=== PATIENT | female | born 1980 | race Caucasian/White ===

== ENCOUNTER 2018-08-03 20:55 | Inpatient (IN) | payer OTHER ==
[2018-08-03 21:50] LABS: BASO % 0.2 % (0-2.0); EOS % 0.7 % (0-4.5); HEMATOCRIT 36.4 % (32.4-45.2); HEMOGLOBIN 12.6 GM/dL (10.7-15.3); LYMPH % 22.3 % (8-40); MCHC 34.5 g/dl (32.0-36.0); MEAN PLT VOLUME 9.8 fl (7.5-11.1); MONO % 5.3 % (3.8-10.2); NEUT % 71.5 % (42.8-82.8); PLATELET COUNT 192 K/MM3 (134-434); RBC 4.34 M/mm3 (3.60-5.2); RDW 16.4 % (11.6-15.6); WHITE BLOOD COUNT 11.3 K/mm3 (4.0-10.0)
[2018-08-03 22:11] LABS: ANION GAP 10 MMOL/L (8-16); BLOOD UREA NITROGEN 15 mg/dL (7-18); CALCIUM 8.9 mg/dL (8.5-10.1); CHLORIDE 104 mmol/L (98-107); CO2 21 mmol/L (21-32); CREATININE 0.8 mg/dL (0.55-1.3); GLUCOSE,RANDOM 107 mg/dL (74-106); INR 1.03 (0.83-1.09); POTASSIUM 3.9 mmol/L (3.5-5.1); PROTHROMBIN TIME (PATIENT) 12.1 SEC (9.7-13.0); SODIUM 134 mmol/L (136-145)
[2018-08-03] MEDS ORDERED: OXYTOCIN 20 UNITS in 0.9% NS 20 UNIT/1,000 ML INFUS.BAG IV ONE (22:13)
[2018-08-03 22:14] LABS: ACTIVATED PTT 25.6 SECONDS (25.2-36.5)
[2018-08-03] MEDS ORDERED: IBUPROFEN 600 MG TABLET (FP) PO ONE (22:38)
[2018-08-03 23:02] VITALS: BMI 36.1
[2018-08-04] MEDS ORDERED: OXYTOCIN 20 UNITS in 0.9% NS 20 UNIT/1,000 ML INFUS.BAG IV ONE (00:34)
[2018-08-04] MEDS ORDERED: BENZOCAINE 20% 57 GM BOTTLE TP PRN (01:35)
[2018-08-04] MEDS ORDERED: IBUPROFEN 600 MG TABLET (FP) PO PRN (01:35)
[2018-08-04] MEDS ORDERED: BENZOCAINE 28 GM HEMORRHOIDAL OINTMENT TP PRN (01:35)
[2018-08-04] MEDS ORDERED: METHYLERGONOVINE MALEATE 0.2 MG/1 ML AMP IM PRN (01:35)
[2018-08-04] MEDS ORDERED: WITCH HAZEL 50% (TUCKS) 40 PAD/JAR PAD TP PRN (01:35)
[2018-08-04] MEDS ORDERED: ACETAMINOPHEN 325 MG TABLET (FP) PO PRN (01:35)
[2018-08-04] MEDS ORDERED: BISACODYL 10 MG SUPP.RECT RC PRN (01:35)
[2018-08-04] MEDS ORDERED: OXYTOCIN 20 UNITS in 0.9% NS 20 UNIT/1,000 ML INFUS.BAG IV SCH (01:45)
[2018-08-04 05:05] LABS: COCAINE, UR NEGATIVE ng/ml (CUTOFF=300); METHADONE, UR NEGATIVE ng/ml (CUTOFF=300); OPIATES, URI NEGATIVE ng/ml (CUTOFF=300); PHENCYCLIDINE,URINE NEGATIVE ng/ml (CUTOFF=25); URINE AMPHETAMINES NEGATIVE ng/ml (CUTOFF=500); URINE BARBITURATES NEGATIVE ng/ml (CUTOFF=200); URINE BENZODIAZEPINES NEGATIVE ng/ml (CUTOFF=200)
[2018-08-04 07:08] LABS: BASO % 0.3 % (0-2.0); EOS % 0.5 % (0-4.5); HEMATOCRIT 33.2 % (32.4-45.2); HEMOGLOBIN 11.3 GM/dL (10.7-15.3); LYMPH % 19.8 % (8-40); MCH 28.5 pg (25.7-33.7); MCHC 34.2 g/dl (32.0-36.0); MEAN CELL VOLUME 83.5 fl (80-96); MEAN PLT VOLUME 9.3 fl (7.5-11.1); NEUT % 73.4 % (42.8-82.8); PLATELET COUNT 172 K/MM3 (134-434); RBC 3.98 M/mm3 (3.60-5.2); RDW 16.3 % (11.6-15.6)
[2018-08-04] MEDS ORDERED: DIPHTH,PERTUSS(ACELL),TET 0.5 ML DISP.SYRIN IM ONE (10:00)
--- NOTE | 2018-08-04 10:13 | HP ---
Past Medical History - Admission Chief Complaint: Labor pain History of Present Illness: 37 yo @ 40 weeks gestation, EDC 08/03/18, admitted for labor pain. Upon admission, she was 4-5cm dilated. History Source: Patient Limitations to Obtaining History: No Limitations - Past Medical History ...: 4 ...Para: 3 ...Term: 3 ...: 0 ...Spon : 0 ...Induced : 0 ...Multiple Gestation: 0 ... Weeks Gestation by Dates: 40 ...EDC by Dates: 08/03/17 - Past Surgical History Past Surgical History: Yes: None Hx Myomectomy: No Hx Transabdominal Cerclage: No - Smoking History Smoking history: Never smoked Have you smoked in the past 12 months: No - Alcohol/Substance Use Hx Alcohol Use: No History of Substance Use: reports: None - Social History Usual Living Arrangement: Yes: With Significant Other History of Recent Travel: No Home Medications - Allergies Allergies/Adverse Reactions: Allergies Allergy/AdvReac Type Severity Reaction Status Date / Time Pork/Porcine Containing Allergy Severe Verified 08/04/18 03:02 Products shellfish derived Allergy Severe Verified 08/04/18 03:02 - Home Medications Home Medications: Ambulatory Orders Vitamins (Sj[facility]) - 1 tab PO DAILY 08/04/18 Family Disease History - Family Disease History Family History: Unremarkable Review of Systems - Review of Systems Constitutional: reports: No Symptoms Eyes: reports: No Symptoms HENT: reports: No Symptoms Neck: reports: No Symptoms Cardiovascular: reports: No Symptoms Respiratory: reports: No Symptoms Gastrointestinal: reports: No Symptoms Genitourinary: reports: Pain Breasts: reports: No Symptoms Reported Musculoskeletal: reports: No Symptoms Integumentary: reports: No Symptoms Neurological: reports: No Symptoms Endocrine: reports: No Symptoms Hematology/Lymphatic: reports: No Symptoms Psychiatric: reports: No Symptoms Pain Intensity: 6 Physical Exam - Maternity Vital Signs: Vital Signs Temperature 98.3 F 08/04/18 05:18 Pulse Rate 80 08/04/18 05:18 Respiratory Rate 19 08/04/18 05:18 Blood Pressure 101/60 08/04/18 05:18 O2 Sat by Pulse Oximetry (%) Constitutional: Yes: Well Nourished Eyes: Yes: Conjunctiva Clear HENT: Yes: Atraumatic Neck: Yes: Supple Cardiovascular: Yes: Regular Rate and Rhythm Lungs: Clear to auscultation Breast(s): Yes: WNL - Abdominal Exam/OB Number of Fetuses: Single Presentation: Vertex - Vaginal Exam/OB Vaginal Bleediing: No Dilatation (cm): 5 Effacement (%): 90 Amniotic Membrane Status: Intact Presentation: Vertex/Position Station: -1 - Physical Exam ...Motor Strength: WNL Psychiatric: Yes: Alert, Oriented - Labs Lab Results: CBC, BMP 08/04/18 06:45 08/03/18 21:30 Problem List - Problems (1) Pain during labor Code(s): O99.89 - OTH DISEASES AND CONDITIONS COMPL PREG/CHLDBRTH; R52 - PAIN, UNSPECIFIED Assessment/Plan Active labor Admit to L&D Anticipate
--- NOTE | 2018-08-04 10:14 | PN ---
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 Nose / Oropharynx suction. Cord clamped and cut.
--- NOTE | 2018-08-04 10:47 | PN ---
Post Progress Note - Subjective Subjective: 37 yo Para 4 status post vaginal delivery, seen and evaluated. Doing well. Post Day: 1 Type of Delivery: Vital Signs: Vital Signs Temperature 98.3 F 08/04/18 05:18 Pulse Rate 80 08/04/18 05:18 Respiratory Rate 19 08/04/18 05:18 Blood Pressure 101/60 08/04/18 05:18 O2 Sat by Pulse Oximetry (%) Breast Exam: Yes: Soft Uterus: Yes: Fundus Firm Abdomen/GI: Yes: Abdomen soft, Tolerating PO Lochia: Yes: Rubra Lochia, amount: Moderate Extremities: Yes: Calves non-tender Perineum: Yes: Intact Activity: Ambulating - Labs Labs: CBC WBC 13.0 K/mm3 (4.0-10.0) H 08/04/18 06:45 RBC 3.98 M/mm3 (3.60-5.2) 08/04/18 06:45 Hgb 11.3 GM/dL (10.7-15.3) 08/04/18 06:45 Hct 33.2 % (32.4-45.2) 08/04/18 06:45 MCV 83.5 fl (80-96) 08/04/18 06:45 MCH 28.5 pg (25.7-33.7) 08/04/18 06:45 MCHC 34.2 g/dl (32.0-36.0) 08/04/18 06:45 RDW 16.3 % (11.6-15.6) H 08/04/18 06:45 Plt Count 172 K/MM3 (134-434) 08/04/18 06:45 MPV 9.3 fl (7.5-11.1) 08/04/18 06:45 Absolute Neuts (auto) 9.5 K/mm3 (1.5-8.0) H 08/04/18 06:45 Neutrophils % 73.4 % (42.8-82.8) 08/04/18 06:45 Lymphocytes % 19.8 % (8-40) 08/04/18 06:45 Monocytes % 6.0 % (3.8-10.2) 08/04/18 06:45 Eosinophils % 0.5 % (0-4.5) 02/05/19 06:45 Basophils % 0.3 % (0-2.0) 08/04/18 06:45 Nucleated RBC % 0 % (0-0) 08/04/18 06:45 Problem List - Problems (1) Pain during labor Code(s): O99.89 - OTH DISEASES AND CONDITIONS COMPL PREG/CHLDBRTH; R52 - PAIN, UNSPECIFIED (2) Status post normal vaginal delivery Code(s): [id number] - Assessment/Plan Status post vaginal deliver Stable Continue routine care
[2018-08-05] MEDS ORDERED: SENNOSIDES/DOCUSATE COMBO (SENNA PLUS) TABLET (UD) PO PRN (01:35)
--- NOTE | 2018-08-05 09:05 | PN ---
Post Progress Note - Subjective Subjective: no complains Post Day: 2 Type of Delivery: Vital Signs: Vital Signs Temperature 97.5 F L 08/04/18 20:30 Pulse Rate 84 08/04/18 20:30 Respiratory Rate 20 08/04/18 20:30 Blood Pressure 105/67 08/04/18 20:30 O2 Sat by Pulse Oximetry (%) Breast Exam: Yes: Soft, Engorged (rt breast engorged ), Other (breast & bottle feeding ). No: Cracked Nipples Uterus: Yes: Fundus Firm, Fundus below umbilicus Lochia: Yes: Rubra Lochia, amount: Moderate Extremities: Yes: Calves non-tender Perineum: Yes: Intact Activity: Ambulating - Labs Labs: CBC WBC 13.0 K/mm3 (4.0-10.0) H 08/04/18 06:45 RBC 3.98 M/mm3 (3.60-5.2) 08/04/18 06:45 Hgb 11.3 GM/dL (10.7-15.3) 08/04/18 06:45 Hct 33.2 % (32.4-45.2) 08/04/18 06:45 MCV 83.5 fl (80-96) 08/04/18 06:45 MCH 28.5 pg (25.7-33.7) 08/04/18 06:45 MCHC 34.2 g/dl (32.0-36.0) 08/04/18 06:45 RDW 16.3 % (11.6-15.6) H 08/04/18 06:45 Plt Count 172 K/MM3 (134-434) 08/04/18 06:45 MPV 9.3 fl (7.5-11.1) 08/04/18 06:45 Absolute Neuts (auto) 9.5 K/mm3 (1.5-8.0) H 08/04/18 06:45 Neutrophils % 73.4 % (42.8-82.8) 08/04/18 06:45 Lymphocytes % 19.8 % (8-40) 08/04/18 06:45 Monocytes % 6.0 % (3.8-10.2) 08/04/18 06:45 Eosinophils % 0.5 % (0-4.5) 08/04/18 06:45 Basophils % 0.3 % (0-2.0) 08/04/18 06:45 Nucleated RBC % 0 % (0-0) 08/04/18 06:45 Problem List - Problems (1) Encounter for care after planned out of hospital delivery Code(s): Z39.2 - ENCOUNTER FOR ROUTINE FOLLOW-UP Assessment/Plan stable plan discharge today.
[2018-08-05 09:23] VITALS: BP 109/65; PULSE 97; TEMP 98.9
== END 2018-08-05 12:50 | disposition home or self-care (01) | DRG 560 ==
LOC: JLDR 20:55 → J3W 08-04 00:40
PROVIDERS: ADMIT Obstetrics & Gynecology; ATTEND Obstetrics & Gynecology
PROC: 10E0XZZ Delivery of Products of Conception, External Approach (ICD-10-PCS; principal; 2018-08-03)
DX: O48.0 Post-term pregnancy (principal); Z3A.40 40 weeks gestation of pregnancy; Z37.0 Single live birth
CPT/HCPCS: 36415; 59409; 80048; 80307; 85025; 85610; 85730; 86593; 86850; 86900; 86901; 90715

== ENCOUNTER 2020-05-12 10:15 | Inpatient (IN) | payer OTHER ==
[2020-05-12 11:32] VITALS: BMI 34.0
[2020-05-12] MEDS ORDERED: OXYTOCIN 30 UNITS in 0.9% NS 30 UNIT/500 ML INFUS.BAG IVPB ONE (11:42)
[2020-05-12] MEDS ORDERED: OXYTOCIN 30 UNITS in 0.9% NS 30 UNIT/500 ML INFUS.BAG IVPB SCH (11:45)
[2020-05-12] MEDS ORDERED: ELECTROLYTE-148 SOLN 1,000 ML IV SCH (11:45)
[2020-05-12 11:47] LABS: BASO % 0.6 % (0-2.0); EOS % 0.9 % (0-4.5); HEMATOCRIT 36.9 % (32.4-45.2); HEMOGLOBIN 12.4 GM/dL (10.7-15.3); LYMPH % 22.1 % (8-40); MCH 28.5 pg (25.7-33.7); MCHC 33.5 g/dl (32.0-36.0); MEAN PLT VOLUME 9.9 fl (7.5-11.1); MONO % 4.5 % (3.8-10.2); NEUT % 71.9 % (42.8-82.8); PLATELET COUNT 153 K/MM3 (134-434); RBC 4.34 M/mm3 (3.60-5.2); RDW 15.9 % (11.6-15.6); WHITE BLOOD COUNT 9.4 K/mm3 (4.0-10.0)
[2020-05-12 11:57] LABS: INR 0.96 (0.83-1.09); PROTHROMBIN TIME (PATIENT) 11.8 SEC (9.7-13.0)
[2020-05-12 12:00] LABS: ACTIVATED PTT 25.3 SECONDS (25.2-36.5)
[2020-05-12 12:06] LABS: POTASSIUM 3.9 mmol/L (3.5-5.1)
[2020-05-12 12:08] LABS: BLOOD UREA NITROGEN 5.2 mg/dL (7-18); CALCIUM 8.5 mg/dL (8.5-10.1)
[2020-05-12 12:12] LABS: CREATININE 0.5 mg/dL (0.55-1.3)
[2020-05-12] MEDS ORDERED: OXYTOCIN 20 UNITS in 0.9% NS 20 UNIT/1,000 ML INFUS.BAG IV ONE ×2 (14:39→15:44)
[2020-05-12] MEDS ORDERED: LIDOCAINE HCL 1% PRESERVATIVE FREE - 30ML VIAL ONE (14:40)
[2020-05-12] MEDS ORDERED: WITCH HAZEL 50% (TUCKS) 40 PAD/JAR PAD TP PRN (14:52)
[2020-05-12] MEDS ORDERED: METHYLERGONOVINE MALEATE 0.2 MG/1 ML AMP IM PRN (14:52)
[2020-05-12] MEDS ORDERED: BISACODYL 10 MG SUPP.RECT RC PRN (14:52)
[2020-05-12] MEDS ORDERED: BENZOCAINE 20% 57 GM BOTTLE TP PRN (14:52)
[2020-05-12] MEDS ORDERED: BENZOCAINE 28 GM HEMORRHOIDAL OINTMENT TP PRN (14:52)
[2020-05-12] MEDS ORDERED: OXYTOCIN 20 UNITS in 0.9% NS 20 UNIT/1,000 ML INFUS.BAG IV SCH (15:00)
[2020-05-12] MEDS ORDERED: ACETAMINOPHEN 325 MG TABLET (FP) ONE (16:58)
[2020-05-12] MEDS ORDERED: IBUPROFEN 600 MG TABLET (FP) PO ONE (16:58)
[2020-05-12] MEDS: ACETAMINOPHEN 325 MG TABLET (FP) PO PRN (17:10)
[2020-05-12] MEDS: IBUPROFEN 600 MG TABLET (FP) PO PRN (17:11)
[2020-05-13] MEDS: IBUPROFEN 600 MG TABLET (FP) PO PRN (02:52)
[2020-05-13] MEDS: ACETAMINOPHEN 325 MG TABLET (FP) PO PRN (02:53)
[2020-05-13 08:00] LABS: BASO % 0.2 % (0-2.0); EOS % 1.1 % (0-4.5); HEMOGLOBIN 10.9 GM/dL (10.7-15.3); LYMPH % 23.3 % (8-40); MCH 28.3 pg (25.7-33.7); MCHC 33.2 g/dl (32.0-36.0); MEAN CELL VOLUME 85.4 fl (80-96); MEAN PLT VOLUME 10.2 fl (7.5-11.1); MONO % 4.4 % (3.8-10.2); PLATELET COUNT 133 K/MM3 (134-434); RBC 3.86 M/mm3 (3.60-5.2); WHITE BLOOD COUNT 11.2 K/mm3 (4.0-10.0)
[2020-05-13] MEDS: PRENATAL VITAMINS W/ FOLIC ACID TABLET (FP) PO SCH (09:58)
[2020-05-13] MEDS ORDERED: DIPHTH,PERTUSS(ACELL),TET 0.5 ML DISP.SYRIN IM ONE (10:00)
[2020-05-13] MEDS ORDERED: SENNOSIDES/DOCUSATE COMBO (SENNA PLUS) TABLET (UD) PO PRN (22:00)
[2020-05-14] MEDS: IBUPROFEN 600 MG TABLET (FP) PO PRN (08:22)
[2020-05-14] MEDS: ACETAMINOPHEN 325 MG TABLET (FP) PO PRN (08:22)
[2020-05-14 09:18] VITALS: BP 101/63; PULSE 67; TEMP 97.6
[2020-05-14] MEDS: PRENATAL VITAMINS W/ FOLIC ACID TABLET (FP) PO SCH (09:30)
== END 2020-05-14 13:05 | disposition home or self-care (01) | DRG 560 ==
LOC: JDEL 10:15 → JLDR 10:55 → J3W 18:14
PROVIDERS: ADMIT Obstetrics & Gynecology; ATTEND Obstetrics & Gynecology
PROC: 10E0XZZ Delivery of Products of Conception, External Approach (ICD-10-PCS; principal; 2020-05-12)
PROC: 3E033VJ Introduction of Other Hormone into Peripheral Vein, Percutaneous Approach (ICD-10-PCS; 2020-05-12)
PROC: 10907ZC Drainage of Amniotic Fluid, Therapeutic from Products of Conception, Via Natural or Artificial Opening (ICD-10-PCS; 2020-05-12)
DX: O48.0 Post-term pregnancy (principal); O99.214 Obesity complicating childbirth; E66.9 Obesity, unspecified; Z3A.40 40 weeks gestation of pregnancy; Z91.013 Allergy to seafood; Z91.018 Allergy to other foods; Z37.0 Single live birth
CPT/HCPCS: 36415; 59409; 80048; 85025; 85610; 85730; 86780; 86850; 86900; 86901; 90715; C9803; U0003

== ENCOUNTER 2022-09-09 00:35 | Inpatient (IN) | payer OTHER ==
[2022-09-09] MEDS: OXYTOCIN 20 UNITS in 0.9% NS 20 UNIT/1,000 ML INFUS.BAG IV SCH ×2 (00:47→01:50)
[2022-09-09] MEDS ORDERED: ACETAMINOPHEN 325 MG TABLET (FP) PO PRN (01:29)
[2022-09-09] MEDS ORDERED: BENZOCAINE 20% 57 GM BOTTLE TP PRN (01:29)
[2022-09-09] MEDS ORDERED: oxyCODONE HCL 5 MG TABLET PO PRN (01:29)
[2022-09-09] MEDS ORDERED: WITCH HAZEL 50% (TUCKS) 40 PAD/JAR PAD TP PRN (01:29)
[2022-09-09] MEDS ORDERED: METHYLERGONOVINE MALEATE 0.2 MG/1 ML AMP IM PRN (01:29)
[2022-09-09] MEDS ORDERED: BISACODYL 10 MG SUPP.RECT RC PRN (01:29)
[2022-09-09] MEDS ORDERED: BENZOCAINE 28 GM HEMORRHOIDAL OINTMENT TP PRN (01:29)
[2022-09-09 02:04] LABS: BASO % 0.3 % (0-2.0); EOS % 0.6 % (0-4.5); HEMOGLOBIN 10.9 GM/dL (10.7-15.3); LYMPH % 19.4 % (8-40); MCH 26.6 pg (25.7-33.7); MEAN CELL VOLUME 80.5 fl (80-96); MEAN PLT VOLUME 10.4 fl (7.5-11.1); NEUT % 74.7 % (42.8-82.8); PLATELET COUNT 146 10^3/uL (134-434); RDW 16.4 % (11.6-15.6); WHITE BLOOD COUNT 10.3 K/mm3 (4.0-10.0)
[2022-09-09 02:08] VITALS: BMI 34.2
[2022-09-09 02:09] LABS: INR 1.01 (0.83-1.09); PROTHROMBIN TIME (PATIENT) 11.7 SEC (9.7-13.0)
[2022-09-09 02:12] LABS: ACTIVATED PTT 24.7 SECONDS (25.2-36.5)
[2022-09-09 02:28] LABS: CALCIUM 7.9 mg/dL (8.5-10.1)
[2022-09-09 02:29] LABS: BLOOD UREA NITROGEN 10.7 mg/dL (7-18)
[2022-09-09 02:32] LABS: CREATININE 0.6 mg/dL (0.55-1.3)
[2022-09-09 03:26] LABS: HIV INTERPRETATION NEGATIVE (NEGATIVE)
[2022-09-09 06:13] LABS: COCAINE, UR NEGATIVE (NEGATIVE); OPIATES, URI NEGATIVE (NEGATIVE); PHENCYCLIDINE,URINE NEGATIVE (NEGATIVE); URINE BARBITURATES NEGATIVE (NEGATIVE); URINE BENZODIAZEPINES NEGATIVE (NEGATIVE)
[2022-09-09 06:14] LABS: METHADONE, UR NEGATIVE (NEGATIVE)
[2022-09-09 06:26] LABS: URINE AMPHETAMINES NEGATIVE (NEGATIVE)
[2022-09-09] MEDS: IBUPROFEN 600 MG TABLET (FP) PO PRN ×3 (07:44→20:43)
[2022-09-10] MEDS: IBUPROFEN 600 MG TABLET (FP) PO PRN ×2 (02:27→08:12)
[2022-09-10 07:33] LABS: BASO % 0.3 % (0-2.0); EOS % 1.1 % (0-4.5); HEMATOCRIT 30.1 % (32.4-45.2); HEMOGLOBIN 10.1 GM/dL (10.7-15.3); LYMPH % 33.1 % (8-40); MCH 27.7 pg (25.7-33.7); MCHC 33.5 g/dl (32.0-36.0); MEAN CELL VOLUME 82.6 fl (80-96); MONO % 5.1 % (3.8-10.2); NEUT % 60.4 % (42.8-82.8); PLATELET COUNT 145 10^3/uL (134-434); RBC 3.65 M/mm3 (3.60-5.2); RDW 17.2 % (11.6-15.6); WHITE BLOOD COUNT 9.5 K/mm3 (4.0-10.0)
[2022-09-10] MEDS ORDERED: SENNOSIDES/DOCUSATE COMBO (SENNA PLUS) TABLET (UD) PO PRN (22:00)
[2022-09-11] MEDS: IBUPROFEN 600 MG TABLET (FP) PO PRN (06:10)
[2022-09-11 09:30] VITALS: BP 105/69; PULSE 90; RESP 18; TEMP 98.1
== END 2022-09-11 12:25 | disposition home or self-care (01) | DRG 560 ==
LOC: JLDR 00:35 → J3W 04:35
PROVIDERS: ADMIT Obstetrics & Gynecology; ATTEND Obstetrics & Gynecology
PROC: 10E0XZZ Delivery of Products of Conception, External Approach (ICD-10-PCS; principal; 2022-09-09)
DX: O80 Encounter for full-term uncomplicated delivery (principal); Z37.0 Single live birth; Z3A.40 40 weeks gestation of pregnancy
CPT/HCPCS: 36415; 59409; 80048; 80307; 85025; 85610; 85730; 86780; 86850; 86900; 86901; 87389; C9803-CS; U0003; U0005

== ENCOUNTER 2024-01-19 02:57 | Inpatient (IN) | payer OTHER ==
[2024-01-19 03:06] VITALS: BMI 34.3
[2024-01-19] MEDS ORDERED: diphenhydrAMINE HCL 25 MG CAPSULE (FP) PO ONE (03:49)
[2024-01-19] MEDS ORDERED: FAMOTIDINE 20 MG TABLET ONE (03:50)
[2024-01-19] MEDS ORDERED: DEXAMETHASONE SOD PHOSPHATE 10 MG/1 ML VIAL ONE ×2 (03:50)
[2024-01-19] MEDS: DEXAMETHASONE SOD PHOSPHATE 10 MG/1 ML VIAL IM ONE (03:56)
[2024-01-19] MEDS: FAMOTIDINE 20 MG TABLET PO ONE (03:56)
[2024-01-19] MEDS: diphenhydrAMINE HCL 25 MG CAPSULE (FP) PO ONE (03:56)
[2024-01-19] MEDS: LACTATED RINGERS SOLUTION 1000 ML INFUS.BAG IV ONE (06:37)
[2024-01-19 09:23] LABS: EPI CELLS >36 /uL (0-25.1); HCG,QUALITATIVE URINE Negative; HYALINE CASTS 1 /uL (0-3.1); URINE APPEARANCE CLEAR; URINE BACTERIA 1331 /uL (0-1359); URINE BILIRUBIN NEGATIVE (NEGATIVE); URINE COLOR YELLOW; URINE GLUCOSE (UA) NEGATIVE (NEGATIVE); URINE KETONE NEGATIVE (NEGATIVE); URINE LEUK ESTERASE 2+ (NEGATIVE); URINE NITRITE NEGATIVE (NEGATIVE); URINE PROTEIN NEGATIVE (NEGATIVE); URINE RBC 13 /uL (0-23.9); URINE UROBILINOGEN 0.2 mg/dL (0.2-1.0); URINE WBC 79 /uL (0-25.8)
[2024-01-19] MEDS ORDERED: EPINEPHrine/PF 1 MG/1 ML (1:1,000) AMPULE ONE (09:24)
[2024-01-19 09:29] LABS: BASO % 0.1 % (0-2.0); EOS % 0.8 % (0-4.5); HEMATOCRIT 35.4 % (32.4-45.2); HEMOGLOBIN 12.1 GM/dL (10.7-15.3); LYMPH % 14.1 % (8-40); MCH 29.4 pg (25.7-33.7); MEAN CELL VOLUME 86.4 fl (80-96); MEAN PLT VOLUME 8.5 fl (7.5-11.1); MONO % 1.3 % (3.8-10.2); NEUT % 83.7 % (42.8-82.8); PLATELET COUNT 238 10^3/uL (134-434); RDW 15.8 % (11.6-15.6)
[2024-01-19] MEDS: EPINEPHrine 1:1,000 0.3 MG/0.3 ML SYR IM ONE (09:30)
[2024-01-19 09:43] LABS: POTASSIUM 4.2 mmol/L (3.5-5.1)
[2024-01-19 09:46] LABS: BLOOD UREA NITROGEN 9.8 mg/dL (7-18); CALCIUM 8.7 mg/dL (8.5-10.1)
[2024-01-19 09:47] LABS: ALBUMIN 3.7 g/dl (3.4-5.0)
[2024-01-19 09:50] LABS: CREATININE 0.6 mg/dL (0.55-1.3)
[2024-01-19 09:51] LABS: BILIRUBIN,TOTAL 0.6 mg/dL (0.2-1)
[2024-01-19 09:52] LABS: TOT PROT 7.5 g/dl (6.4-8.2)
[2024-01-19] MEDS: VANCOMYCIN HCL 1,500 MG in DEXTROSE 5%-WATER - 500 ML IVPB ONE (12:56)
[2024-01-19] MEDS ORDERED: AMPICILLIN NA/SULBACTAM NA 1.5 GM VIAL ONE (12:57)
[2024-01-19] MEDS: AMPICILLIN NA/SULBACTAM NA 1.5 GM in SODIUM CHLORIDE 100 ML IVPB SCH ×2 (13:00→18:23)
[2024-01-19] MEDS: PIPERACILLIN/TAZOB 3.375 GM 3.375 GM in DEXTROSE 5%-WATER - 50 ML IVPB ONE (13:12)
[2024-01-20 09:08] LABS: BASO % 0.3 % (0-2.0); EOS % 4.2 % (0-4.5); HEMATOCRIT 34.7 % (32.4-45.2); HEMOGLOBIN 11.5 GM/dL (10.7-15.3); MCH 28.7 pg (25.7-33.7); MCHC 33.2 g/dl (32.0-36.0); MEAN CELL VOLUME 86.3 fl (80-96); MONO % 4.6 % (3.8-10.2); NEUT % 66.9 % (42.8-82.8); PLATELET COUNT 276 10^3/uL (134-434); RBC 4.02 M/mm3 (3.60-5.2); RDW 15.9 % (11.6-15.6); WHITE BLOOD COUNT 14.1 K/mm3 (4.0-10.0)
[2024-01-20 09:30] LABS: BLOOD UREA NITROGEN 14.6 mg/dL (7-18); MAGNESIUM 2.2 mg/dL (1.8-2.4)
[2024-01-20 09:33] LABS: CREATININE 0.6 mg/dL (0.55-1.3); PHOSPHOROUS 3.2 mg/dL (2.5-4.9)
[2024-01-20] MEDS ORDERED: ACETAMINOPHEN 325 MG TABLET (FP) PO PRN (15:02)
[2024-01-20] MEDS: LORATADINE 10 MG TABLET PO SCH (16:10)
[2024-01-21 08:11] LABS: BASO % 0.4 % (0-2.0); EOS % 8.8 % (0-4.5); HEMATOCRIT 36.4 % (32.4-45.2); HEMOGLOBIN 11.9 GM/dL (10.7-15.3); LYMPH % 41.8 % (8-40); MCH 28.8 pg (25.7-33.7); MCHC 32.8 g/dl (32.0-36.0); MEAN CELL VOLUME 87.6 fl (80-96); MEAN PLT VOLUME 8.9 fl (7.5-11.1); MONO % 5.7 % (3.8-10.2); NEUT % 43.3 % (42.8-82.8); PLATELET COUNT 237 10^3/uL (134-434); RBC 4.15 M/mm3 (3.60-5.2); RDW 15.8 % (11.6-15.6); WHITE BLOOD COUNT 8.3 K/mm3 (4.0-10.0)
[2024-01-21 08:26] LABS: POTASSIUM 4.4 mmol/L (3.5-5.1)
[2024-01-21 08:38] LABS: BLOOD UREA NITROGEN 15.4 mg/dL (7-18); CALCIUM 9.2 mg/dL (8.5-10.1)
[2024-01-21 08:42] LABS: CREATININE 0.7 mg/dL (0.55-1.3)
[2024-01-22] MEDS: AMPICILLIN NA/SULBACTAM NA 1.5 GM in SODIUM CHLORIDE 100 ML IVPB SCH (17:24)
[2024-01-22] MEDS: AMOX TR/POT CLAV 875MG/125MG TABLETS (FP) PO SCH (20:28)
[2024-01-23 09:24] LABS: BASO % 0.2 % (0-2.0); EOS % 9.6 % (0-4.5); HEMATOCRIT 38.6 % (32.4-45.2); HEMOGLOBIN 12.9 GM/dL (10.7-15.3); LYMPH % 36.5 % (8-40); MCH 28.8 pg (25.7-33.7); MCHC 33.5 g/dl (32.0-36.0); MEAN CELL VOLUME 86.1 fl (80-96); MONO % 4.6 % (3.8-10.2); NEUT % 49.1 % (42.8-82.8); PLATELET COUNT 249 10^3/uL (134-434); RBC 4.48 M/mm3 (3.60-5.2); RDW 15.6 % (11.6-15.6); WHITE BLOOD COUNT 7.7 K/mm3 (4.0-10.0)
[2024-01-23 09:53] LABS: POTASSIUM 4.1 mmol/L (3.5-5.1)
[2024-01-23 10:06] LABS: CALCIUM 9.2 mg/dL (8.5-10.1)
[2024-01-23 10:10] LABS: CREATININE 0.8 mg/dL (0.55-1.3)
[2024-01-23] MEDS ORDERED: CLOTRIMAZOLE/BETAMET DIPROP 15 GM TUBE TP SCH (13:15)
[2024-01-23 14:07] VITALS: BP 117/77; PULSE 84; RESP 18; TEMP 98.2
[2024-01-23] MEDS: CLOTRIMAZOLE/BETAMET DIPROP 15 GM TUBE TP SCH (14:20)
[2024-01-23] MEDS: BETAMETHASONE DIPR 0.05% OINT 45 GM TUBE TP SCH (14:47)
== END 2024-01-23 18:36 | disposition home or self-care (01) | DRG 385 ==
LOC: JER 02:57 → JERBED 10:10 → J7W 13:57 → OBSVTOIN 01-20 10:10
PROVIDERS: ADMIT Internal Medicine; ATTEND Nurse Practitioner
DX: R21 Rash and other nonspecific skin eruption (principal); N61.1 Abscess of the breast and nipple; T78.40XA Allergy, unspecified, initial encounter; L29.9 Pruritus, unspecified; J02.0 Streptococcal pharyngitis
CPT/HCPCS: 36415; 71045-TC-FY; 76641-TC-LT; 77066-TC; 80048; 80053; 81003; 83735; 84100; 84703; 85025; 87040; 87070; 87651; 93005; 93010; 99285-25; G0279-TC; G0378; J0171; J1100

== ENCOUNTER 2024-03-24 11:01 | Emergency (ER) | payer OTHER ==
[2024-03-24 11:28] VITALS: BP 121/76; PULSE 70; RESP 16; TEMP 98.1; BMI 71.0
[2024-03-24] MEDS ORDERED: SULFAMETHOXAZOLE/TRIMETHOPRIM 800MG/160MG D.S. TABLET ONE (11:54)
[2024-03-24] MEDS ORDERED: CEPHALEXIN MONOHYDRATE 500 MG CAPSULE (UD) ONE (11:54)
[2024-03-24] MEDS: CEPHALEXIN MONOHYDRATE 500 MG CAPSULE (UD) PO ONE (11:57)
[2024-03-24] MEDS: SULFAMETHOXAZOLE/TRIMETHOPRIM 800MG/160MG D.S. TABLET PO ONE (11:57)
== END 2024-03-24 12:13 | disposition home or self-care (01) ==
LOC: JERFT 11:01
DX: N61.1 Abscess of the breast and nipple (principal)
CPT/HCPCS: 99283-25